=== PATIENT | female | born 1965 | race American Indian/Alaskan Native ===

== ENCOUNTER 2022-02-03 16:31 | Emergency (ER) | payer SELFPAY ==
--- NOTE | 2022-02-03 17:43 | XRay Report ---
CHEST 2 VIEWS INDICATION: cp. COMPARISON: None. FINDINGS: Support devices: None. Heart: Within normal limits. Lungs/Pleura: No acute air space or interstitial disease. No significant pleural effusion. IMPRESSION: No acute findings. Signer Name: Orlin Michael MD Signed: 02/03/2022 5:39 PM Workstation Name: [id number]
[2022-02-03 18:05] LABS: Basophils % (Auto) 0.5 % (0.0-1.8); Eosinophils # (Auto) 0.1 K/mm3 (0.0-0.4); Eosinophils % (Auto) 1.6 % (0.0-4.3); Hematocrit 39.9 % (30.3-42.9); Hemoglobin 13.8 gm/dl (10.1-14.3); Lymphocytes # (Auto) 2.5 K/mm3 (1.2-5.4); Lymphocytes % (Auto) 39.6 % (13.4-35.0); Mean Corpuscular HGB Conc 35 % (30-34); Mean Corpuscular Volume 87 fl (79-97); Monocytes # (Auto) 0.5 K/mm3 (0.0-0.8); Platelet Count 244 K/mm3 (140-440); Red Blood Count 4.61 M/mm3 (3.65-5.03); Red Cell Distribution Width 13.8 % (13.2-15.2)
[2022-02-03 18:23] LABS: Alanine Aminotransferase 43 units/L (7-56); Albumin 4.3 g/dL (3.9-5); Blood Urea Nitrogen 17 mg/dL (7-17); Hemolysis Index 26
[2022-02-03 18:25] LABS: INR 0.84 (0.87-1.13)
[2022-02-03 18:26] LABS: Partial Thromboplastin Time 29.2 Sec. (24.2-36.6)
[2022-02-03 18:45] LABS: BUN/Creatinine Ratio 24
[2022-02-03 20:57] VITALS: BP 144/63
--- NOTE | 2022-02-03 21:07 | Emergency Department Report ---
HPI - General Chief Complaint: Chest Pain Time Seen by Provider: 02/03/22 20:29 - HPI HPI: Room 2 The patient is a 57-year-old female present with a chief complaint of chest pain. The patient states since yesterday she has had intermittent substernal c hest pain described as sharpness in nature. Patient denies shortness of breath, diaphoresis or nausea/vomiting with this pain. Patient states she has not had the chest pain in approximately 1 hour here in the ED. Patient states she is never had a stress test or cardiac catheterization ED Past Medical Hx - Past Medical History Previous Medical History?: Yes Hx Hypertension: Yes - Surgical History Past Surgical History?: No Additional Surgical History: , hysterectomy - Family History Family history: no significant - Social History Smoking Status: Never Smoker Substance Use Type: None (Denies illicit drug use) - Medications Home Medications: Home Medications Medication Instructions Recorded Confirmed Last Taken Type Aspirin 325 mg PO QDAY #30 tablet 02/03/22 Unknown Rx Nitroglycerin [Nitrostat] 0.4 mg SL Q5M PRN #30 tab 02/03/22 Unknown Rx ED Review of Systems ROS: Stated complaint: SEVERE CHEST PAIN Other details as noted in HPI Constitutional: denies: diaphoresis, fever Eyes: denies: eye pain ENT: denies: throat pain Respiratory: denies: shortness of breath Cardiovascular: chest pain Endocrine: no symptoms reported Gastrointestinal: denies: nausea, vomiting Genitourinary: denies: dysuria Musculoskeletal: denies: back pain Neurological: denies: headache Physical Exam - Physical Exam Vital Signs: Vital Signs 02/03/22 02/03/22 17:15 20:56 Temperature 98.4 F Pulse Rate 85 61 Respiratory 18 22 Rate Blood Pressure 145/60 Blood Pressure 144/63 [Left] O2 Sat by Pulse 99 100 Oximetry Physical Exam: GENERAL: The patient is well-developed well-nourished female lying on stretcher not appearing to be in acute distress. [] HEENT: Normocephalic. Atraumatic. Extraocular motions are intact. Patient has moist mucous membranes. NECK: Supple. Trachea midline CHEST/LUNGS: Clear to auscultation. There is no respiratory distress noted. HEART/CARDIOVASCULAR: Regular. There is no tachycardia. There is no gallop rub or murmur. ABDOMEN: Abdomen is soft, nontender. Patient has normal bowel sounds. There is no abdominal distention. SKIN: There is no rash. There is no edema. There is no diaphoresis. NEURO: The patient is awake, alert, and oriented. The patient is cooperative. The patient has no focal neurologic deficits. The patient has normal speech. GCS 15 MUSCULOSKELETAL: There is no evidence of acute injury. ED Course Vital Signs 02/03/22 02/03/22 17:15 20:56 Temperature 98.4 F Pulse Rate 85 61 Respiratory 18 22 Rate Blood Pressure 145/60 Blood Pressure 144/63 [Left] O2 Sat by Pulse 99 100 Oximetry - Reevaluation(s) Reevaluation #1: 02/03/22 22:29 Patient states she has remained chest pain-free since our initial interview. Patient has had 2 negative troponins and a negative D-dimer. Patient given strong warnings to follow-up with her primary physician and/or wire stretcher. Patient will be given a prescription for nitroglycerin to use as needed. Strong warnings given. Patient verbalized understanding ED Medical Decision Making - Lab Data Result diagrams: 02/03/22 17:41 02/03/22 17:41 Laboratory Tests 02/03/22 02/03/22 02/03/22 17:41 17:41 17:41 WBC 6.3 RBC 4.61 Hgb 13.8 Hct 39.9 MCV 87 MCH 30 MCHC 35 H RDW 13.8 Plt Count 244 Lymph % (Auto) 39.6 H [place] % (Auto) 8.0 H Eos % (Auto) 1.6 Baso % (Auto) 0.5 Lymph # (Auto) 2.5 [place] # (Auto) 0.5 Eos # (Auto) 0.1 Baso # (Auto) 0.0 Seg Neutrophils % 50.3 Seg Neutrophils # 3.2 PT 12.4 INR 0.84 L APTT 29.2 D-Dimer Sodium 139 Potassium 4.2 Chloride 99.2 Carbon Dioxide 31 H Anion Gap 13 BUN 17 Creatinine 0.7 Estimated GFR > 60 BUN/Creatinine Ratio 24 Glucose 106 H Calcium 10.0 Total Bilirubin 0.50 AST 40 ALT 43 Alkaline Phosphatase 97 Troponin T < 0.010 Total Protein 7.9 Albumin 4.3 Albumin/Globulin Ratio 1.2 02/03/22 02/03/22 21:00 21:33 WBC RBC Hgb Hct MCV MCH MCHC RDW Plt Count Lymph % (Auto) [place] % (Auto) Eos % (Auto) Baso % (Auto) Lymph # (Auto) [place] # (Auto) Eos # (Auto) Baso # (Auto) Seg Neutrophils % Seg Neutrophils # PT INR APTT D-Dimer 207.88 Sodium Potassium Chloride Carbon Dioxide Anion Gap BUN Creatinine Estimated GFR BUN/Creatinine Ratio Glucose Calcium Total Bilirubin AST ALT Alkaline Phosphatase Troponin T < 0.010 Total Protein Albumin Albumin/Globulin Ratio - EKG Data -: EKG Interpreted by Me EKG shows normal: sinus rhythm Rate: bradycardia (58 bpm) - EKG Data When compared to previous EKG there are: previous EKG unavailable Interpretation: nonspecific ST-T wave zion - Radiology Data Radiology results: report reviewed (Chest x-ray), image reviewed (Chest x-ray) interpreted by me: Chest x-ray-no definite focal infiltrates, no pneumothorax [facility] [address] [place] [address] XRay Report Signed Patient: ANUP WHITEHEAD MR#: [id number] : 1965 Acct:[id number] Age/Sex: 57 / F ADM Date: 02/03/22 Loc: ED Attending Dr: Ordering Physician: EMMA TOMLINSON MD Date of Service: 02/03/22 Procedure(s): XR chest routine 2V Accession Number(s): [id number] cc: EMMA TOMLINSON MD Fluoro Time In Minutes: CHEST 2 VIEWS INDICATION: cp. COMPARISON: None. FINDINGS: Support devices: None. Heart: Within normal limits. Lungs/Pleura: No acute air space or interstitial disease. No significant pleural effusion. IMPRESSION: No acute findings. Signer Name: Orlin Michael MD Signed: 02/03/2022 5:39 PM Workstation Name: [id number] Transcribed By: ES Dictated By: Orlin Michael MD Electronically Authenticated By: Orlin Michael MD Signed Da te/Time: 02/03/221738 DD/ 38 TD/TT: - Differential Diagnosis ACS, PE, costochondritis, GERD, atypical chest pain Critical care attestation.: If time is entered above; I have spent that time in minutes in the direct care of this critically ill patient, excluding procedure time. ED Disposition Clinical Impression: Chest pain Disposition: 01 HOME / SELF CARE / HOMELESS Is pt being admited?: No Does the pt Need Aspirin: No Condition: Stable Instructions: Nonspecific Chest Pain, Adult Additional Instructions: Return to the emergency department should you develop worsening symptoms, inability to tolerate food or liquids, high fever or any other concerns Prescriptions: Aspirin 325 mg PO QDAY #30 tablet Nitroglycerin [Nitrostat] 0.4 mg SL Q5M PRN #30 tab PRN Reason: Chest Pain Referrals: PRIMARY CAREMD [Referring] - 3-5 Days ZORAIDA FITCH MD [Staff Physician] - [facility] (Dr. Fitch is a wire stretcher. Please follow-up with her or whichever wire stretcher your primary physician referred you to for further evaluation) Time of Disposition: 22:32 Heart Score - HEART Score History: Slightly suspicious EKG: Non-specific Age: 45-65 Risk factors: 1-2 risk factors Troponin: < normal limit HEART Score: 3 - EKG Read Time Time EKG Completed: 17:04 EKG Read Time: 17:08
--- NOTE | 2022-02-04 12:11 | Electrocardiograph Report ---
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
== END 2022-02-03 23:17 | disposition home or self-care (01) ==
LOC: ED 16:31
DX: R07.9 Chest pain, unspecified (principal); I10 Essential (primary) hypertension; Z90.710 Acquired absence of both cervix and uterus; Z98.890 Other specified postprocedural states
CPT/HCPCS: 36415; 71046; 80053; 84484; 85025; 85379; 85610; 85730; 93005; 99284